=== PATIENT | female | born 1995 | race Caucasian/White ===

== ENCOUNTER → 2018-05-11 | Outpatient (CLI) | payer OTHER | END | disposition home or self-care (01) | LOC: LAB 15:12 → LAB SHORT 15:12 | DX: Z34.80 Encounter for supervision of other normal pregnancy, unspecified trimester (principal) | CPT/HCPCS: 87081; 87653 ==

== ENCOUNTER 2018-05-28 06:55 | Inpatient (IN) | payer OTHER ==
[~2018-05-28] VITALS: Ht 157.5 cm; Wt 0.2 kg
[2018-05-28 08:03] LABS: BASOPHILS ABSOLUTE AUTO 0.04 K/mm3 (0.00-0.23); BASOPHILS PERCENT AUTO 0 % (0-2); EOSINOPHILS ABSOLUTE AUTO 0.31 K/mm3 (0.00-0.68); EOSINOPHILS PERCENT AUTO 3 % (0-6); Hematocrit 35.3 % (33.0-51.0); Hemoglobin 11.6 g/dL (11.5-16.0); IMMATURE GRAN ABSOLUTE AUTO 0.03 K/mm3 (0.00-0.10); IMMATURE GRAN PERCENT AUTO 0 % (0-1); LYMPHOCYTES ABSOLUTE AUTO 4.44 K/mm3 (0.84-5.20); LYMPHOCYTES PERCENT AUTO 37 % (21-46); MONOCYTES ABSOLUTE AUTO 0.48 K/mm3 (0.16-1.47); MONOCYTES PERCENT AUTO 4 % (4-13); Mean Corpuscular HGB 29.9 pg (26.0-34.0); Mean Corpuscular HGB Conc 32.9 g/dL (31.5-36.5); Mean Corpuscular Volume 91 fL (80-100); Mean Platelet Volume 11.5 fL (9.1-12.4); NEUTROPHILS ABSOLUTE AUTO 6.85 K/mm3 (1.96-9.15); NEUTROPHILS PERCENT AUTO 56 % (41-73); Platelet Count 332 K/mm3 (150-400); RDW Coefficient Variation 13.5 % (11.7-14.2); RDW Standard Deviation 45.1 fL (35.1-46.3); Red Blood Cell Count 3.88 M/mm3 (3.80-5.20); White Blood Cell Count 12.15 K/mm3 (4.00-11.30)
[2018-05-28] MEDS ORDERED: Verotin-Gr Cap1 EACH PO (08:34)
[2018-05-28] MEDS ORDERED: BUPRENORPHIN-N1 EACH SL (09:26)
[2018-05-28 11:19] LABS: U Amphetamine Screen Not Detected; U Barbituate Screen Not Detected; U Benzodiazapine Screen Not Detected; U Buprenorphine Screen DETECTED; U Cannabinoids Screen Not Detected; U Cocaine Screen Not Detected; U Methadone Screen Not Detected; U Methamphetamine Screen Not Detected; U Opiates Screen Not Detected; U Oxycodone Screen Not Detected; U Phencyclidine Screen Not Detected; U Propoxyphene Screen Not Detected
--- NOTE | 2018-05-28 21:43 | NUR ---
Pt reminded several times on day shift and on quotation checker about having her Subutex bottles brought in- stated the S.O. had gone home (to [place]) to get them and would bring them back. @ 2129, asked if S.O. was going to bring in bottles. Pt stated that he was but that she already took her dose for tonight and that GEN was taking a nap at home since they have other kids.
[2018-05-29 05:59] LABS: Hematocrit 32.5 % (33.0-51.0); Hemoglobin 10.7 g/dL (11.5-16.0); Mean Corpuscular HGB 29.8 pg (26.0-34.0); Mean Corpuscular HGB Conc 32.9 g/dL (31.5-36.5); Mean Corpuscular Volume 91 fL (80-100); Mean Platelet Volume 11.5 fL (9.1-12.4); Platelet Count 267 K/mm3 (150-400); RDW Coefficient Variation 13.9 % (11.7-14.2); RDW Standard Deviation 46.1 fL (35.1-46.3); Red Blood Cell Count 3.59 M/mm3 (3.80-5.20); White Blood Cell Count 17.21 K/mm3 (4.00-11.30)
--- NOTE | 2018-05-29 12:10 | NUR ---
REPORT TO FORREST BEARD
--- NOTE | 2018-05-29 18:21 | NUR ---
DISCHARGE INSTRUCTIONS, WRITTEN AND VERBAL, GIVEN TO PATIENT. ANSWERED ALL QUESITONS/CONCERNS. WRITTEN PRESCRIPTIONS HANDED TO PATIENT. ALL PERSONAL BELONGINGS RETURNED. PT IS DISCHARGED HOME, DRIVEN BY SHAILESH.
[2018-05-29] MEDS ORDERED: IBUP800 PO (19:12)
== END 2018-05-29 19:18 | disposition home or self-care (01) | DRG 806 ==
LOC: BC 06:55 → OBS 06:55 → BC 07:16
PROVIDERS: ADMIT Obstetrics & Gynecology
PROC: 10E0XZZ Delivery of Products of Conception, External Approach (ICD-10-PCS; principal; 2018-05-28)
PROC: 3E033VJ Introduction of Other Hormone into Peripheral Vein, Percutaneous Approach (ICD-10-PCS; 2018-05-28)
PROC: 10907ZC Drainage of Amniotic Fluid, Therapeutic from Products of Conception, Via Natural or Artificial Opening (ICD-10-PCS; 2018-05-28)
DX: O99.324 Drug use complicating childbirth (principal); F11.20 Opioid dependence, uncomplicated; Z37.0 Single live birth; Z3A.39 39 weeks gestation of pregnancy; O99.334 Smoking (tobacco) complicating childbirth; F17.200 Nicotine dependence, unspecified, uncomplicated
CPT/HCPCS: 36415; 85025; 85027; J1885; J2210; J2590; J3010; J7120

== ENCOUNTER 2019-01-21 10:14 | Day surgery (SDC) | payer OTHER ==
[~2019-01-21] VITALS: Ht 157.5 cm; Wt 66.5 kg
[~2019-01-21 10:14] MED LIST: BUPRENORPHIN-N1 EACH SL; BUPRENORPHINE HC8 MG SL; IBUP800 PO; NICO21TP TOP; Verotin-Gr Cap1 EACH PO; XULANE PATCH1 EACH TD
--- NOTE | 2019-01-21 11:41 | NUR ---
01/21/19 1141 Aysha Arenas PT AND SIGNIFICANT OTHER UPDATED REGARDING DELAY OF CASE. PT VERBALIZES UNDERSTANDING AND DENIES NEEDS AT THIS TIME. CALL LIGHT WITHIN REACH.
== END 2019-01-21 14:10 | disposition home or self-care (01) ==
LOC: ORSCSDS 10:14
PROVIDERS: Obstetrics & Gynecology
PROC: 0U574ZZ Destruction of Bilateral Fallopian Tubes, Percutaneous Endoscopic Approach (ICD-10-PCS; principal; 2019-01-21 11:30)
DX: Z30.2 Encounter for sterilization (principal); N80.3 Endometriosis of pelvic peritoneum; F17.210 Nicotine dependence, cigarettes, uncomplicated
CPT/HCPCS: 88302; J0171; J0690; J1100; J1885; J2250; J2405; J2704; J2710; J3010; J7120

== ENCOUNTER 2020-05-04 14:41 | Emergency (ER) | payer OTHER ==
[~2020-05-04] VITALS: Ht 157.5 cm; Wt 68.0 kg
[2020-05-04] MEDS ORDERED: BUPR100 PO (16:53)
[2020-05-04] MEDS ORDERED: BUSP5 PO (16:53)
[2020-05-04] MEDS ORDERED: Cipro500 MG PO (17:19)
== END 2020-05-04 17:34 | disposition home or self-care (01) ==
LOC: ER 14:41
DX: M79.5 Residual foreign body in soft tissue (principal); F17.200 Nicotine dependence, unspecified, uncomplicated; Z79.3 Long term (current) use of hormonal contraceptives; Z79.899 Other long term (current) drug therapy
CPT/HCPCS: 99282

== ENCOUNTER 2020-05-09 13:25 | Day surgery (SDC) | payer OTHER ==
[~2020-05-09] VITALS: Ht 157.5 cm; Wt 68.3 kg
[~2020-05-09 13:25] MED LIST changes: +BUPR100 PO; +BUSP5 PO; +Cipro500 MG PO
[2020-05-09] MEDS ORDERED: GABA100 (13:43)
--- NOTE | 2020-05-09 14:33 | NUR ---
05/09/20 1433 Lisandra Hobbs BUPIVACAINE 0.5% 30ML MIXED WITH EPI 0.15MG TO CONSTITUTE BUPIVACAINE 0.5% W/ EPI 1:200,000. 15ML INJECTED BY DR. SELBY
== END 2020-05-09 15:03 | disposition home or self-care (01) ==
LOC: ORSCSDS 13:25
PROVIDERS: Podiatrist Foot & Ankle Surgery
PROC: 0JCQ0ZZ Extirpation of Matter from Right Foot Subcutaneous Tissue and Fascia, Open Approach (ICD-10-PCS; principal; 2020-05-09 14:00)
DX: S90.851A Superficial foreign body, right foot, initial encounter (principal); F11.10 Opioid abuse, uncomplicated; F17.210 Nicotine dependence, cigarettes, uncomplicated; Z79.899 Other long term (current) drug therapy
CPT/HCPCS: J0171; J0690; J1100; J1885; J2250; J2405; J2704; J3010; J7120

== ENCOUNTER → 2021-03-01 | Outpatient (CLI) | payer OTHER ==
[~2021-03-01] MED LIST changes: +GABA100
== END | disposition home or self-care (01) ==
LOC: LAB SHORT 19:03 → LAB 19:03
DX: R10.30 Lower abdominal pain, unspecified (principal)
CPT/HCPCS: 87086

== ENCOUNTER → 2021-06-21 | Outpatient (CLI) | payer OTHER | END | disposition home or self-care (01) | LOC: LAB SHORT 10:40 → LAB 10:40 | DX: R30.0 Dysuria (principal) | CPT/HCPCS: 87077; 87086; 87186 ==